=== PATIENT | male | born 1960 | race Caucasian/White ===

== ENCOUNTER 2024-03-12 10:31 | Day surgery (SDC) | payer MEDICAID, OTHER ==
[2024-03-05 14:56] LABS: BASOPHILS # (AUTO) 0.1 X10'3 (0-0.2); BASOPHILS % (AUTO) 0.8 % (0-1); EOSINOPHILS # (AUTO) 0.3 X10'3 (0-0.9); EOSINOPHILS % (AUTO) 3.1 % (0-6); LYMPHOCYTES % (AUTO) 23.5 % (21-51); MEAN CORPUSCULAR HEMOGLOBIN 32.4 PG (27.0-31.0); MEAN CORPUSCULAR HGB CONC 33.5 g/dL (33.0-36.5); MEAN CORPUSCULAR VOLUME 96.7 FL (78-98); MEAN PLATELET VOLUME 9.4 FL (7.4-10.4); MONOCYTES # (AUTO) 0.7 X10'3 (0-0.9); MONOCYTES % (AUTO) 7.5 % (2-12); NEUTROPHILS # (AUTO) 5.6 X10'3 (1.8-7.7); NEUTROPHILS % (AUTO) 65.1 % (42-75); PRE OP HEMATOCRIT 48.6 % (42.0-52.0); PRE OP HEMOGLOBIN 16.3 g/dL (14.0-17.9); PRE OP PLATELET COUNT 190 X10'3 (140-440); PRE OP WHITE BLOOD COUNT 8.6 10'3 (4.8-10.8); RED BLOOD COUNT 5.03 X10'6 (4.70-6.10); RED CELL DISTRIBUTION WIDTH 14.1 % (11.5-14.5)
[2024-03-05 15:07] LABS: ALBUMIN 4.1 G/DL (3.4-5.0); ALKALINE PHOSPHATASE 90 IU/L (46-116); BLOOD UREA NITROGEN 21 MG/DL (7-18); BUN/CREATININE RATIO 22.3 (10.0-20.0); CALCIUM 8.8 MG/DL (8.5-10.1); CHLORIDE 103 MMOL/L (99-107); CREATININE 0.94 MG/DL (0.60-1.10); PRE OP ALT 30 U/L (30-65); PRE OP ANION GAP 5 (8-16); PRE OP AST 20 U/L (10-37); PRE OP GLUCOSE 96 MG/DL (70-104); PRE OP POTASSIUM 4.2 MMOL/L (3.4-5.1); PRE OP SODIUM 139 MMOL/L (135-145); TOTAL CARBON DIOXIDE 30.6 MMOL/L (24-32); TOTAL PROTEIN 8.1 G/DL (6.4-8.2); eGFR 81 ML/MIN
[~2024-03-12] VITALS: Ht 180.3 cm; Wt 96.4 kg
[2024-03-12] VITALS (25 sets, daily range): BP systolic 100–135; BP diastolic 62–100; PULSE 65–87; RESP 11–18; TEMP 97.5–98.7; O2SAT 94–100
[2024-03-12] MEDS: ceFAZolin 2gm in dextrose, iso 50 ML IV ONE (05:30)
[2024-03-12] MEDS: DOCUMENT DATE & TIME OF BETA-BLOCKER PO ONE (05:30)
[~2024-03-12 10:31] MED LIST: ALBU18HF2 INH; APIX5TAB3 PO; CARV3.122 PO; D3; DOCU-28 PO; EMPA25TA PO; FLUT100B3 INH; IPRA3AMP31 NEB; LORA10TA7 PO; OMEP20CA16 PO; SACU1TAB PO
[2024-03-12] MEDS: famotidine 20mg tablet PO ONE (11:24)
[2024-03-12] MEDS: tranexamic acid 650mg tablet PO ONE (11:27)
[2024-03-12] MEDS: ringers solution, lacted 1,000 ML IV SCH ×2 (11:27→19:00)
[2024-03-12] MEDS: vancomycin/NS 1 GM ADD-VANTAGE 250 ML X 1 DOSE IV ONE (11:27)
[2024-03-12] MEDS ORDERED: ROPIVAcaine 0.5% (5mg/ml) 30ml vial ONE ×2 (11:40→13:29)
[2024-03-12] MEDS ORDERED: mineral oil 10ml sterile, topical TP ONE (11:40)
[2024-03-12] MEDS ORDERED: BUPIVACAINE/MELOXICAM 14 ML VIAL IL ONE (11:41)
[2024-03-12] MEDS ORDERED: tetracaine 1% (10mg/ml) pres. free inj. ONE (11:55)
[2024-03-12] MEDS: albuterol 2.5 MG/3 ML nebule NEB PRN (12:02)
[2024-03-12] MEDS: ipratropium/albuterol 3ml nebule NEB ONE (12:06)
[2024-03-12] MEDS: ipratropium/albuterol 3ml nebule ONE (12:07)
[2024-03-12] MEDS ORDERED: BUPIVAcaine/dex-water/PF 7.5 mg/ml 2ml ampul ONE (12:42)
[2024-03-12] MEDS ORDERED: fentaNYL/PF 50MCG/1 ML 2ML syringe ONE (12:47)
[2024-03-12] MEDS ORDERED: midazolam 1 mg/ML 2ml injection ONE (12:47)
[2024-03-12] MEDS ORDERED: dexamethasone sod phosphate 4mg/ml inj. ONE (13:29)
[2024-03-12] MEDS ORDERED: propofol inj 20 ML IV ONE ×2 (13:29)
[2024-03-12] MEDS ORDERED: 0.9 % SODIUM CHLORIDE 10 ML VIAL ONE (13:29)
[2024-03-12] MEDS ORDERED: ePHEDrine 50MG/ML INJ. ONE (13:50)
[2024-03-12] MEDS ORDERED: meperidine/PF 25mg/ml syringe IV PRN (15:30)
[2024-03-12] MEDS ORDERED: ondansetron/PF 4mg/2ml inj IV PRN ×2 (15:30→16:15)
[2024-03-12] MEDS ORDERED: acetaminophen 1,000mg/100ml IV 100 ML IV PRN (15:30)
[2024-03-12] MEDS ORDERED: labetalol 20mg/4ml (5mg/ml) syringe IV PRN (15:30)
[2024-03-12] MEDS ORDERED: hydrALAZINE 20mg/ml inj. IV PRN (15:30)
[2024-03-12] MEDS ORDERED: morphine 4 MG/ML inj SYRINge IV PRN (15:30)
[2024-03-12] MEDS ORDERED: HYDROmorphone/PF 0.2 MG/ML SYRINGE IV PRN ×2 (15:30)
[2024-03-12] MEDS ORDERED: proCHLORperazine 10 MG/2 ml inj IV PRN (15:30)
[2024-03-12] MEDS ORDERED: morphine 2 MG/ML inj. syringe IV PRN (15:30)
[2024-03-12] MEDS ORDERED: diphenhydrAMINE 25mg capsule PO PRN ×2 (16:15)
[2024-03-12] MEDS ORDERED: magnesium hydroxide 30ml (MOM) UD suspension PO PRN (16:15)
[2024-03-12] MEDS ORDERED: oxyCODONE IR 5mg (immed. release) tablet PO PRN (16:15)
[2024-03-12] MEDS ORDERED: non-formulary drug (Albuterol Sulfate (Ventolin Hfa) 2 PUFFS) INH PRN (16:15)
[2024-03-12] MEDS ORDERED: naloxone 0.4 mg/ml inj IV PRN (16:15)
[2024-03-12] MEDS ORDERED: acetaminophen 325mg tablet PO PRN (16:15)
[2024-03-12] MEDS ORDERED: HYDROmorphone 1 mg/ml syringe IV PRN (16:15)
[2024-03-12] MEDS ORDERED: bisacodyl 10mg suppository rectal RC PRN (16:15)
[2024-03-12] MEDS: ipratropium/albuterol 3ml nebule NEB SCH (21:37)
[2024-03-12] MEDS: apixaban 5mg tablet PO SCH (22:15)
[2024-03-12] MEDS: sacubitril/valsartan 24mg-26mg tablet PO SCH (22:15)
[2024-03-12] MEDS: potassium cl 20mEq in 1/2 NS 1,000 ML IV SCH (22:16)
[2024-03-12] MEDS: vancomycin/NS 1 GM ADD-VANTAGE 250 ML IV SCH (22:16)
[2024-03-12] MEDS: sennosides 8.6mg tablet PO SCH (22:16)
[2024-03-12] MEDS: acetaminophen 325mg tablet PO SCH (22:16)
[2024-03-12] MEDS: carVEDilol 3.125mg tablet PO SCH (22:17)
[2024-03-13] VITALS (7 sets, daily range): BP systolic 95–135; BP diastolic 59–92; PULSE 80–90; RESP 13–20; TEMP 97.4–98; O2SAT 96–98
[2024-03-13] MEDS: oxyCODONE IR 5mg (immed. release) tablet PO PRN (02:30)
[2024-03-13] MEDS: ceFAZolin/D5W- 1GM premix 50 ML IV SCH (02:30)
[2024-03-13] MEDS: HYDROmorphone inj. 0.5 MG/0.5 ML DISP.SYRIN IV PRN (05:36)
[2024-03-13 06:39] LABS: BASOPHILS # (AUTO) 0.1 X10'3 (0-0.2); BASOPHILS % (AUTO) 0.4 % (0-1); EOSINOPHILS # (AUTO) 0.1 X10'3 (0-0.9); EOSINOPHILS % (AUTO) 0.5 % (0-6); HEMATOCRIT 41.8 % (42.0-52.0); HEMOGLOBIN 14.3 g/dl (14.0-17.9); LYMPHOCYTES # (AUTO) 1.1 X10'3 (1.1-4.8); LYMPHOCYTES % (AUTO) 8.7 % (21-51); MEAN CORPUSCULAR HEMOGLOBIN 32.6 PG (27.0-31.0); MEAN CORPUSCULAR HGB CONC 34.1 g/dL (33.0-36.5); MEAN CORPUSCULAR VOLUME 95.5 FL (78-98); MEAN PLATELET VOLUME 9.6 FL (7.4-10.4); MONOCYTES # (AUTO) 1.1 X10'3 (0-0.9); MONOCYTES % (AUTO) 9.1 % (2-12); NEUTROPHILS # (AUTO) 10.2 X10'3 (1.8-7.7); NEUTROPHILS % (AUTO) 81.3 % (42-75); PLATELET COUNT 175 X10'3 (140-440); RED BLOOD COUNT 4.38 X10'6 (4.70-6.10); RED CELL DISTRIBUTION WIDTH 13.7 % (11.5-14.5); WHITE BLOOD COUNT 12.5 X10'3 (4.5-11.0)
[2024-03-13 06:50] LABS: ANION GAP 5 (8-16); CHLORIDE 104 MMOL/L (99-107); POTASSIUM 4.5 MMOL/L (3.5-5.1); SODIUM 135 MMOL/L (135-145); TOTAL CARBON DIOXIDE 25.7 MMOL/L (24-32)
[2024-03-13] MEDS: budesonide 0.5mg/2ml UD nebule IH SCH (07:58)
[2024-03-13] MEDS ORDERED: EMPAGLIFLOZIN 25 MG TABLET PO SCH ×2 (08:00→09:34)
[2024-03-13] MEDS: docusate sod 100mg capsule PO SCH (09:26)
[2024-03-13] MEDS: aspirin 325mg tablet PO SCH (09:26)
[2024-03-13] MEDS: loratadine 10mg tablet PO SCH (09:26)
[2024-03-13] MEDS: EMPAGLIFLOZIN 25 MG TABLET PO ONE (09:40)
[2024-03-13] MEDS: pantoprazole 40mg Tablet.DR PO SCH (11:42)
[2024-03-13] MEDS ORDERED: celeCOXIB 100mg capsule PO SCH (20:00)
[2024-03-14] MEDS ORDERED: acetaminophen 325mg tablet PO PRN (18:20)
== END 2024-03-13 13:30 | disposition home or self-care (01) ==
LOC: PAS 10:31 → ORTHO 4S 16:24 → PAS 03-13 13:30
PROVIDERS: ATTEND Orthopaedic Surgery
DX: M17.0 Bilateral primary osteoarthritis of knee (principal); I10 Essential (primary) hypertension; I48.91 Unspecified atrial fibrillation; K21.9 Gastro-esophageal reflux disease without esophagitis; G89.18 Other acute postprocedural pain; Z87.891 Personal history of nicotine dependence; Z79.01 Long term (current) use of anticoagulants; Z79.84 Long term (current) use of oral hypoglycemic drugs; Z79.899 Other long term (current) drug therapy; Z98.890 Other specified postprocedural states; Z82.49 Family history of ischemic heart disease and other diseases of the circulatory system
CPT/HCPCS: 20985; 27447; 36415; 64447; 64999; 80051; 80053; 82948; 85025; 87081; 94640; 94760; 97116; 97161; 97530; C1776; C9088; J0690; J0735; J1100; J1171; J2250; J2704; J2795; J3010; J3370; J3480; J3490; J7030; J7120; S2900; Z7506; Z7508; Z7512; A4215; A4615; A6449; A7000; G0378